=== PATIENT | male | born 1955 | race Hispanic/Latino ===

== ENCOUNTER 2018-11-02 14:21 | Inpatient (IN) | payer BC, MEDICARE ==
[~2018-11-02] VITALS: Ht 157.5 cm; Wt 45.4 kg
[2018-11-02] MEDS ORDERED: TETANUS/DIPHTHERIA TOX ADULT 0.5 ML SYR IM ONE (14:45)
--- NOTE | 2018-11-02 15:34 | Diagnostic Imaging Report ---
Exam: Left finger 4 views History: Pain Comparison: None. Findings: Intra-articular fracture at the dorsal base distal phalanx ring finger. Soft tissue swelling. Impression: Intra-articular fracture at the dorsal base distal phalanx ring finger Signed by: Dr. Bran Jimenez M.D. on 11/02/2018 3:31 PM
[2018-11-02] MEDS ORDERED: CLINDAMYCIN 600MG / 50ML 50 ML IV STA (15:47)
[2018-11-02] MEDS ORDERED: ONDANSETRON HCL INJ 2MG/ML 2ML 2 MG/ML VIAL IV PRN (17:00)
[2018-11-02] MEDS ORDERED: MORPHINE SULFATE 2 MG/ML SYR 1ML IV PRN (17:00)
[2018-11-02 17:01] LABS: BASOPHILS # (AUTO) 0.1 (0.0-0.1); BASOPHILS % 0.8 % (0.0-1.0); EOSINOPHILS % 0.6 % (0.0-6.0); HEMOGLOBIN 15.7 g/dL (14.0-18.0); LYMPHOCYTES # (AUTO) 1.7 (1.0-3.2); LYMPHOCYTES % 26.6 % (18.0-39.1); MEAN CORPUSCULAR HEMOGLOBIN 32.1 pg (28-32); MEAN CORPUSCULAR HGB CONC 35.7 g/dL (31-35); MONOCYTES # (AUTO) 0.6 (0.2-0.8); MONOCYTES % 9.2 % (4.4-11.3); NEUTROPHILS % 62.5 % (38.7-80.0); PLATELET COUNT 210 x10e3/uL (140-360); RED BLOOD COUNT 4.89 x10e6/uL (4.3-5.7); RED CELL DISTRIBUTION WIDTH 12.7 % (11.7-14.4)
--- OUTSIDE RECORDS SUMMARY | 2018-11-02 17:12 | XMS REPORT ---
Author Author [facility] Address Unknown Phone Unavailable Care Team Providers Care Experimental Assembler Name Role Phone Monse DE LA ROSA Unavailable Unavailable Problems This patient has no known problems. Allergies, Adverse Reactions, Alerts This patient has no known allergies or adverse reactions. Medications This patient has no known medications. Results Test Description Test Time Test Comments Text Results Atomic Results Result Comments FINGER LEFT 2018-11-02 15:30:00 [place] [id number] Patient Name: LIDA MORAN MR #: [id number] : 1955 Age/Sex: 63/M Req #: [id number] Adm Physician: Ordered by: ES KENNEY PET CARE ASSISTANT Report #: [id number] Location: ER Room/Bed: Procedure: [id number] DX/FINGER LEFT Exam Date: 11/02/18 Exam Time: 1500 REPORT STATUS: Signed Exam: Left finger 4 views History: Pain Compar ajay: None. Findings: Intra-articular fracture at the dorsal base distal phalanx ring finger. Soft tissue swelling. Impression: Intra- articular fracture at the dorsal base distal phalanx ring finger Signed by: Dr. Kika Moore M.D. on 11/02/2018 3:31 PM Dictated By: KIKA MOORE MD [id number] Transcribed By: OLLIE on 11/02/18 1531 COPY TO: ES KENNEY NP
[2018-11-02 17:14] LABS: ALANINE AMINOTRANSFERASE 12 IU/L (0-55); ALBUMIN 3.7 g/dL (3.5-5.0); ALKALINE PHOSPHATASE 126 IU/L (40-150); ANION GAP 14.9 mmol/L (8-16); BLOOD UREA NITROGEN 20 mg/dL (7-26); BUN/CREATININE RATIO 24 (6-25); CALCIUM 8.9 mg/dL (8.4-10.2); CARBON DIOXIDE 26 mmol/L (22-29); CHLORIDE 99 mmol/L (98-107); CREATININE, SERUM 0.82 mg/dL (0.72-1.25); EST GLOMERULAR FILTRATION RATE > 60 ML/MIN (60-); GLUCOSE 273 mg/dL (74-118); POTASSIUM 3.9 mmol/L (3.5-5.1); SODIUM 136 mmol/L (136-145)
[2018-11-02] MEDS ORDERED: MORPHINE SULFATE INJ 4 MG/ML INJ 1ML IV PRN (17:15)
--- NOTE | 2018-11-02 17:43 | Diagnostic Imaging Report ---
EXAMINATION: CHEST SINGLE (PORTABLE) INDICATION: 63-year-old male, preop COMPARISON: None FINDINGS: AP view TUBES and LINES: None. LUNGS/PLEURA: The lungs are clear. No pleural effusion or pneumothorax. HEART AND MEDIASTINUM: The cardiomediastinal silhouette is unremarkable. BONES AND SOFT TISSUES: No acute osseous lesion. Soft tissues are unremarkable. UPPER ABDOMEN: No free air under the diaphragm. IMPRESSION: No acute thoracic abnormality. Signed by: Benny Moreland MD on 11/02/2018 5:39 PM
[2018-11-02] MEDS ORDERED: DEXTROSE 50% SYRINGE 50 ML IV PRN (18:15)
[2018-11-02] MEDS: INSULIN REGULAR, HUMAN 100 UNIT/1 ML 3ML VIAL SQ SCH (20:12)
[2018-11-02] MEDS: SODIUM CHLORIDE 0.9% 1000ML 1,000 ML IV SCH (20:12)
[2018-11-02 20:48] VITALS: BP 150/72
--- NOTE | 2018-11-02 21:47 | NUR ---
received patient per stretcher, patient positioned in bed, at the bedside, no complaints of pain or discomfort.
[2018-11-02] MEDS ORDERED: INFLUENZA VIRUS VAC SPLIT INJ 0.5 ML SYR IM ONE (22:00)
[2018-11-02] MEDS ORDERED: PNEUMOCOCCAL VACCINE POLYVALENT 23 MCG/0.5 ML VIAL IM ONE (22:00)
[2018-11-02 22:05] VITALS: BP 150/72
[2018-11-02] MEDS: CLINDAMYCIN 300MG 50 ML IV SCH (23:30)
[2018-11-03] VITALS (9 sets, daily range): BP systolic 108–133; BP diastolic 55–72
[2018-11-03] MEDS: SODIUM CHLORIDE 0.9% 1000ML 1,000 ML IV SCH (00:59)
[2018-11-03] MEDS ORDERED: PNEUMOCOCCAL VACCINE POLYVALENT 23 MCG/0.5 ML VIAL ONE (04:20)
[2018-11-03] MEDS ORDERED: INFLUENZA VIRUS VAC SPLIT INJ 0.5 ML SYR IM ONE (04:21)
[2018-11-03] MEDS: CLINDAMYCIN 300MG 50 ML IV SCH ×3 (04:39→17:38)
--- NOTE | 2018-11-03 07:07 | NUR ---
PATIENT CONTINUE RESTING IN BED, DR. TOWNSEND MADE ROUNDS AND NEW ORDERS NOTED. PATIENT CONTINUE RECEIVING IV FLUIDS WILL CONTINUE TO MONITOR.
--- NOTE | 2018-11-03 07:28 | NUR ---
PATIENT ASSISTED TO THE RESTROOM AND BACK TO BED. REMAINS NPO FOR A PROCEDURE. IV FLUID INFUSING ORDERED. BED IN LOWER POSITION, CALL LIGHT AT REACH.
[2018-11-03] MEDS: INSULIN REGULAR, HUMAN 100 UNIT/1 ML 3ML VIAL SQ SCH ×4 (07:30→21:00)
[2018-11-03] MEDS ORDERED: MUPIROCIN 2% OINT 22 GM TUBE ONE (07:44)
[2018-11-03] MEDS ORDERED: BACITRACIN 50,000 UNIT VIAL ONE (07:44)
[2018-11-03] MEDS ORDERED: BUPIVACAINE HCL 0.5% INJ 30 ML VIAL INJ ONE (07:44)
--- NOTE | 2018-11-03 07:45 | NUR ---
PATIENT BACK TO UNIT FROM OR. REPORT RECEIVED FROM TIMOTHY TEJADA. ALERT AND VERBALLY RESPONSIVE, HAD A I/D OF LEFT 4TH FINGER, DRESSING WITH COBAN DRY AND INTACT. DENIED PAIN AT THIS TIME. ALL PERSONAL ITEMS CLOSE TO PATIENT. CALL LIGHT AT REACH. V/S 96.0-77-18-105/66 AND 98% ON RA. CALL PLACED TO MD TO REQUEST DIET.
--- NOTE | 2018-11-03 08:15 | NUR ---
PATIENT OFF UNIT TO OR.
--- NOTE | 2018-11-03 11:07 | NUR ---
MD IN TO SEE PATIENT, NEW ORDERS RECEIVED.
[2018-11-03] MEDS ORDERED: AMPICILLIN SOD/SULBACTAM 3GM 100 ML IV SCH (12:00)
[2018-11-03] MEDS: PIPER-TAZ 3.375 GM 50 ML IV SCH ×3 (13:00→23:58)
--- NOTE | 2018-11-03 15:32 | NUR ---
PATIENT SITTING UP IN BED TALKING TO FAMILY MEMBER VISITING. CALL LIGHT AT REACH.
--- NOTE | 2018-11-03 15:35 | NUR ---
Visit made by the Spiritual Care Department Pastoral Visitor, Erlinda Muse. PV provided pastoral presence, prayer, hospitality, and supportive listening. Pastoral Visitor informed pt/family of the scope of Senior Payroll Administrator Services and availability. ED ISSA Labor Utilization Superintendent Spiritual Care Department O: [phone] Pager: [phone] ([phone] number calling from)
--- NOTE | 2018-11-03 16:17 | Consultation ---
DATE OF CONSULTATION: 11/02/2018 Consultation is requested by emergency room. REASON FOR CONSULTATION: Left ring finger dog bite crush injury/open fracture. HISTORY OF PRESENT ILLNESS: This patient is a 63-year-old [id number] male with diabetes and hypercholesterolemia. He states that he was bit by a dog on Friday morning, he was wearing a glove. He states over the course of the past 48 to 72 hours, the finger swelled up. He went to the emergency room today and on exam, radiograph showed an intraarticular fracture with a felon and open wounds consistent with open fracture. The consultation is now requested by Hand Surgery for optimal treatment of open fracture of left ring finger distal phalanx. PAST MEDICAL HISTORY AND PAST SURGICAL HISTORY: As noted above. PHYSICAL EXAMINATION: VITAL SIGNS: The patient is afebrile and vital signs were stable. EXTREMITIES: There is a large amount of swelling from the distal interphalangeal joint distally to the tip of the finger. There is erythema and fluctuance on the volar aspect of the finger consistent with a felon. There is a large subungual hematoma with probable nail bed disruption and the fracture is underlying the germinal matrix. IMAGING DATA: The radiographs were reviewed and it shows an intraarticular nondisplaced fracture of the distal phalanx. IMPRESSION: Open fracture of distal phalanx of left ring finger with felon. PLAN: The patient will be kept n.p.o. after midnight. He will be taken to the OR in the morning for incision and drainage of the felon and for treatment of the open fracture on the dorsal aspect of the finger. Thank you for allowing me to participate in the care of your patient. MD MOUNIKA Adorno/MODL /[id number]
--- NOTE | 2018-11-03 16:43 | Operative Report ---
DATE OF PROCEDURE: 11/03/2018 SURGEON: Socrates Kiran MD PREOPERATIVE DIAGNOSIS: Open fracture left ring finger, distal phalanx. POSTOPERATIVE DIAGNOSES: Open fracture left ring finger, distal phalanx, subungual hematoma and nail bed laceration and felon. PROCEDURES: 1. Open treatment of distal phalanx fracture. 2. I and D of felon, left ring finger, distal phalanx. 3. Nail bed repair. ANESTHESIA: General. HISTORY: The patient is a 63-year-old male, who was admitted yesterday with a three day old dog bite, crush injury with open fracture and now felon. Risks, benefits, and alternatives of treatment were discussed with the patient. He is prepared to undergo the procedure as outlined. DESCRIPTION OF PROCEDURE: The patient was marked preoperatively in the holding area. He was brought to the operating theater and after the induction of adequate general anesthesia, he was prepped and draped in a supine position. A time-out was performed. The left upper extremity was elevated for 4 minutes and then a tourniquet was inflated to a pressure of 250 mmHg. The procedure was begun by using a [place] elevator to elevate the nail plate off the sterile and germinal matrices. Several mL of blood was obtained with this maneuver. The nail plate was then removed from beneath the eponychial fold. There was a laceration just at the junction of germinal and sterile matrices with bulging from underneath. This area was then opened and more hematoma over the fracture site was evacuated. It was irrigated with antibiotic containing solution. At this point, the nail bed was repaired using 5-0 chromic suture in an interrupted fashion. An artifical nail stent was placed beneath the eponychial fold. It was sutured to both the eponychial fold with 5-0 nylon as well as the distal soft tissues with an interrupted 5-0 nylon suture as well. On the volar aspect of the finger, there was a felon and this was incised and then both aerobic and anaerobic cultures were taken. Felon had all the septa broken apart using hemostat and then irrigation with antibiotic-containing solution ensued. At this point, 0.25 inch packing soaked in Bactroban ointment was placed within the felon incision and then the finger was dressed with Bactroban ointment, Xeroform gauze and a sterile bulking confirming bandage. The tourniquet was deflated. All the fingers pinked up nicely and a Marcaine field block was performed at the base of the left ring finger with 0.5% plain Marcaine. The patient tolerated the procedure well and was brought to the recovery room in satisfactory condition. MD MOUNIKA Adorno/LARRY /[id number]
[2018-11-03] MEDS ORDERED: PROPOFOL IV EMULSION 10 MG/ML 20 ML VIAL ONE (17:49)
[2018-11-03] MEDS ORDERED: EPHEDRINE SULFATE INJ 50 MG/10 ML SYR ONE (17:49)
[2018-11-03] MEDS ORDERED: ONDANSETRON HCL INJ 2MG/ML 2ML 2 MG/ML VIAL ONE (17:49)
[2018-11-03] MEDS ORDERED: LIDOCAINE HCL 2% LOCAL INJ 5 ML SDV VIAL INJ ONE (17:49)
[2018-11-03] MEDS ORDERED: SEVOFLURANE INHAL SOLN 250 ML PEN BTL ONE (17:49)
[2018-11-03] MEDS ORDERED: FENTANYL CITRATE/PF 100MCG/2 ML INJ ONE (18:06)
[2018-11-03] MEDS ORDERED: MIDAZOLAM HCL 2 MG/2 ML VIAL ONE (18:06)
--- NOTE | 2018-11-03 19:11 | NUR ---
PT IS RESTING IN BED WITH FAMILY AT BEDSIDE. NO RESPIRATORY DISTRESS NOTED. BED IN THE LOWEST POSITION, LOCKED, AND CALL LIGHT WITHIN REACH. WILL CONTINUE TO MONITOR.
--- NOTE | 2018-11-03 19:13 | History and Physical ---
CHIEF COMPLAINT: Swelling in the left fourth finger and cellulitis. HISTORY OF PRESENT ILLNESS: Mr. Riggs is a 63-year-old male, who presented to the emergency room with pain and swelling in the left fourth finger. 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 He came to the emergency room. Dr. Kiran was consulted and the patient underwent incision and drainage of the left fourth finger. He is feeling better. He is denying any chest pain, nausea, vomiting. He does not have any major medical problems. REVIEW OF SYSTEMS: GENERAL: Denies any fever or chills. HEAD: Denies any head trauma. ENT: Denies any earaches. CVS: Denies any chest pain. RESPIRATORY: Denies any shortness of breath. GI: Denies any nausea, vomiting. The rest of the review of systems are negative except as in HPI. PAST MEDICAL HISTORY: Hypercholesterolemia. PAST SURGICAL HISTORY: None. FAMILY AND SOCIAL HISTORY: He smokes. He smoked for 35+ years, one pack per day. He denies any alcohol use. 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 PHYSICAL EXAMINATION: VITAL SIGNS: Temperature 97.1, pulse of 76, blood pressure 100/50, respiratory rate of 18, O2 saturation 100%. HEENT: Head is atraumatic, normocephalic. NECK: Supple. CHEST: Clear to auscultation bilaterally. No wheezing. HEART: S1, S2 audible. ABDOMEN: Soft, nontender, nondistended. EXTREMITIES: Left fourth finger is dressed. No clubbing, cyanosis or edema. NEUROLOGIC: Awake, alert. No focal neurologic deficits. LABORATORY DATA: White count of 6.3, hemoglobin 15.7, platelets 210. Chemistries within normal limits. ASSESSMENT: Mr. Riggs is a 63-year-old male, who came in with a dog bite resulting in an intra-articular fracture of the dorsal base of the distal phalanx of the ring finger, status post I and D. PLAN: 1. I will start the patient on IV Unasyn. I discussed with Dr. Cameron from Infectious Disease. Consult ID. 2. Surgery consult was done and the patient underwent incision and drainage of the left fourth finger. Discontinue the IV fluids. MD WING Hayes/LARRY /[id number]
[2018-11-04] VITALS: BP 126/73
[2018-11-04 03:55] VITALS: BP 126/66
[2018-11-04] MEDS: PIPER-TAZ 3.375 GM 50 ML IV SCH ×2 (05:40→12:36)
[2018-11-04 08:00] VITALS: BP 123/70
[2018-11-04] MEDS: INSULIN REGULAR, HUMAN 100 UNIT/1 ML 3ML VIAL SQ SCH ×3 (08:42→17:25)
[2018-11-04 11:57] VITALS: BP 117/58
--- NOTE | 2018-11-04 13:00 | NUR ---
Spoke with Dr. Cameron gave orders for pt to have PICC line placed and he is to have IV antibiotic therapy [id number]. Dr. Cameron states she will be here in an hour to see pt.
--- NOTE | 2018-11-04 14:45 | NUR ---
Dr. Cameron was here to see pt and states that pt does not need IV antibiotic therapy. Pt can go home on oral antibiotics and follow up with her in one week.
[2018-11-04 16:00] VITALS: BP 91/55
[2018-11-04] MEDS ORDERED: AUGMENTIN 875-1 EACH PO (16:11)
--- NOTE | 2018-11-04 17:30 | NUR ---
Pt discharged home at this time. 0 s/s of acute distress noted. Prescriptions for augmentin called into pharmacy by physician. Pt was given instructions to follow up with surgeon and infectious disease. Pt verbalized understanding of discharge instructions.
--- NOTE | 2018-11-04 21:51 | Consultation ---
DATE OF CONSULTATION: 11/03/2018 Infectious Disease Consultation. I would like to thank Dr. Sorenson for this interesting consult. HISTORY OF PRESENT ILLNESS: This is a very pleasant 63-year-old male, who works in lawn maintenance business. The patient has a bulldog, small, at home and the day before the admission the patient had a dog bite on his left ring finger. The patient also has history of diabetes mellitus and hyperlipidemia. The finger was having erythema and worsening of edema. X-ray done in the ER suggested intra-articular fracture with swelling and open wound consistent with open fracture. The patient underwent I and D of left ring finger and distal phalanx and repair of nail bed. The patient has been started on IV Zosyn and clindamycin and our service has been asked to evaluate and give further recommendations. PAST MEDICAL HISTORY: Hypertension, diabetes mellitus, and hyperlipidemia. PAST SURGICAL HISTORY: Not significant. MEDICATIONS: Reviewed. ALLERGIES: NO KNOWN DRUG ALLERGIES. FAMILY HISTORY: Noncontributory for diabetes mellitus or hypertension. REVIEW OF SYSTEMS: CONSTITUTIONAL: No fever. No chills. HEENT: No changes in the vision or difficulty hearing. CARDIOVASCULAR: No chest pain, palpitations. RESPIRATORY: No cough or difficulty breathing. GI: No nausea or vomiting. : No burning in urination. EXTREMITIES: Complains of pain in the left upper extremity. NEUROLOGIC: Alert and oriented x3. Sensation is intact. LABORATORY DATA: WBC 6.3, hemoglobin 15.7, hematocrit 44, and platelet count is 210. Glucose is 243. IMAGING STUDIES: X-ray of the finger shows intra-articular fracture of the dorsal base distal phalanx of the ring finger. ASSESSMENT AND PLAN: This is a male with past medical history of hypertension, hyperlipidemia, and diabetes mellitus, presents with dog bite, status post I and D of the wound. X-ray suggests fracture and open wound. I am concerned about cellulitis, wound infection, possibility of osteomyelitis. Continue the patient on IV Zosyn 3.375 g q.8 hours, discontinue clindamycin. We will follow the intraoperative cultures. The patient might need IV antibiotics for long time. Further recommendations to follow. Thank you for letting me participate in the care of your patient. Enriqueta aCmeron MD FT/MODL /[id number]
== END 2018-11-04 17:27 | disposition home or self-care (01) | DRG 908 ==
LOC: ER 14:21 → ERHOLD 17:09 → MED/SURG3 20:53
PROVIDERS: ADMIT Internal Medicine; ATTEND Internal Medicine
PROC: 3E0234Z Introduction of Serum, Toxoid and Vaccine into Muscle, Percutaneous Approach (ICD-10-PCS; 2018-11-02)
PROC: 0HQQXZZ Repair Finger Nail, External Approach (ICD-10-PCS; 2018-11-03)
PROC: 3E02340 Introduction of Influenza Vaccine into Muscle, Percutaneous Approach (ICD-10-PCS; 2018-11-03)
PROC: 3E0234Z Introduction of Serum, Toxoid and Vaccine into Muscle, Percutaneous Approach (ICD-10-PCS; 2018-11-03)
PROC: 0X9K0ZZ Drainage of Left Hand, Open Approach (ICD-10-PCS; principal; 2018-11-03 08:24)
DX: S67.195A Crushing injury of left ring finger, initial encounter (principal); S62.635B Displaced fracture of distal phalanx of left ring finger, initial encounter for open fracture; E11.9 Type 2 diabetes mellitus without complications; E78.5 Hyperlipidemia, unspecified; I10 Essential (primary) hypertension; F17.210 Nicotine dependence, cigarettes, uncomplicated; L03.012 Cellulitis of left finger; W54.0XXA Bitten by dog, initial encounter; Y93.H2 Activity, gardening and landscaping; Y92.096 Garden or yard of other non-institutional residence as the place of occurrence of the external cause; Y99.0 Civilian activity done for income or pay; Z23 Encounter for immunization
CPT/HCPCS: 36415; 71045; 80053; 82948; 85025; 87071; 87075; 87205; 90471; 90714; 90732; 99284; J2001; J2250; J2270; J2405; J2543; J7030